=== PATIENT | female | born 1990 | race Caucasian/White ===

== ENCOUNTER 2022-08-19 07:30 | Inpatient (IN) | payer OTHER ==
[2022-08-25 10:26] LABS: Hemoglobin 11.7 g/dL (12.0-15.5); Platelet Count 168 10x3/uL (150-450)
[2022-08-25 10:50] LABS: Syphilis Antibody Nonreactive (Nonreactive); Syphilis Antibody Index 0.03 S/CO (<1.00 Non-Reactive)
[2022-08-25 10:52] LABS: HBSAg Index 0.17 S/CO (0-0.99); Hep B Surf Ag Non-Reactive S/CO (NonReactive)
[2022-08-26] MEDS ORDERED: Bicitra 30 ML UDCUP PO PRN (05:58)
[2022-08-26] MEDS ORDERED: hydrALAZINE 20 MG/ML VIAL SLOW IVP PRN ×2 (05:58→11:01)
[2022-08-26] MEDS ORDERED: Ondansetron PF 4 MG/2 ML Vial IVP PRN ×3 (05:58→11:01)
[2022-08-26] MEDS ORDERED: Promethazine HCl 25 MG/ML VIAL IM PRN ×2 (05:58→08:29)
[2022-08-26] MEDS ORDERED: Famotidine/PF 20 mg/2ml Vial SLOW IVP PRN (05:58)
[2022-08-26] MEDS ORDERED: CEFAZOLIN 2 GM in Sodium Chloride 0.9% 100 ML IVPB SCH (06:00)
[2022-08-26] MEDS ORDERED: NS w/ Oxytocin 30 units 500 ML IV SCH ×2 (06:00→11:01)
[2022-08-26 06:04] VITALS: BMI 39.9
[2022-08-26] MEDS ORDERED: PHENYLEPHRINE-NS 100 MCG/ML 10 ML SYRINGE ONE (07:22)
[2022-08-26] MEDS ORDERED: Oxytocin 10 UNITS/ML VIAL ONE (07:22)
[2022-08-26] MEDS ORDERED: Ondansetron PF 4 MG/2 ML Vial ONE (07:23)
[2022-08-26] MEDS ORDERED: Morphine PF 10 MG/10 ML VIAL ONE (07:27)
[2022-08-26] MEDS ORDERED: Meperidine HCl/PF 25 MG/ML VIAL SLOW IVP PRN (08:29)
[2022-08-26] MEDS ORDERED: Moisturizing Cream (Eucerin) 113 GM JAR TOP PRN (08:29)
[2022-08-26] MEDS ORDERED: Naloxone HCl 0.4 mg/ml Vial IV PRN (08:29)
[2022-08-26] MEDS ORDERED: Ondansetron HCl/PF 4 MG/2 ML Vial IVP PRN (08:29)
[2022-08-26] MEDS ORDERED: Naloxone HCl 0.4 mg/ml Vial IVP PRN ×2 (08:29)
[2022-08-26] MEDS ORDERED: Promethazine HCl 25 MG SUPP PR PRN (08:29)
[2022-08-26] MEDS ORDERED: diphenhydrAMINE 50 MG/ML VIAL IVP PRN (08:29)
[2022-08-26] MEDS ORDERED: Ketorolac Tromethamine 30 MG/ML VIAL IVP PRN (08:29)
[2022-08-26] MEDS ORDERED: Communication Order-Pharmacy FS SCH (08:30)
[2022-08-26] MEDS ORDERED: Ketorolac Tromethamine 30 MG/ML VIAL IVP SCH (08:30)
[2022-08-26] MEDS ORDERED: fentaNYL 50 mcg/mL 1 mL Vial SLOW IVP PRN (08:36)
[2022-08-26] MEDS ORDERED: Bisacodyl 10 MG SUPP PR PRN (11:01)
[2022-08-26] MEDS ORDERED: diphenhydrAMINE 25 MG CAP PO PRN (11:01)
[2022-08-26] MEDS ORDERED: Simethicone Chewable 80 MG TAB PO PRN (11:01)
[2022-08-26] MEDS ORDERED: Boostrix 0.5 ML (Tdap) VIAL (>/=7 yrs of age) IM ONE (11:01)
[2022-08-26] MEDS ORDERED: Acetaminophen 325 MG TAB PO PRN (11:01)
[2022-08-26] MEDS ORDERED: Lanolin Ointment 7 GM TUBE TOP PRN (11:01)
[2022-08-26] MEDS ORDERED: Docusate 100 MG CAP PO SCH (11:15)
[2022-08-26] MEDS ORDERED: Labetalol HCl 100 MG TAB PO SCH (11:15)
[2022-08-26] MEDS ORDERED: Prenatal Vitamin 1 TAB PO SCH (11:15)
[2022-08-26] MEDS ORDERED: NPH, Human Insulin Isophane 300 UNITS/3 ML VIAL SC SCH ×2 (11:15→21:00)
[2022-08-26] MEDS ORDERED: Ferrous Sulfate 325 MG TAB PO SCH (11:15)
[2022-08-26] MEDS ORDERED: Dextrose 50% Abboject 50 ML SYRINGE SLOW IVP PRN (14:35)
[2022-08-26] MEDS ORDERED: Insulin Regular 300 UNITS/3 ML VIAL SC PRN (14:35)
[2022-08-26] MEDS ORDERED: Dextrose 5% in Water 1,000 ML IV PRN (14:35)
[2022-08-26] MEDS ORDERED: HYDROcodone/Acetaminophen 5/325 mg Tablet PO PRN ×2 (21:00)
[2022-08-26] MEDS: Docusate 100 MG CAP PO SCH (23:23)
[2022-08-26] MEDS: Labetalol HCl 100 MG TAB PO SCH (23:24)
[2022-08-26] MEDS: Ferrous Sulfate 325 MG TAB PO SCH (23:24)
[2022-08-26] MEDS ORDERED: Insulin NPH Human Isophane 100 UNITS/ML (10 ML VIAL) SC SCH (23:45)
[2022-08-27 04:40] LABS: Hemoglobin 10.6 g/dL (12.0-15.5); Mean Corpuscular HGB CONC 33.3 g/dL (32.0-36.0); Mean Corpuscular Hemoglobin 28.6 pg (27.0-33.0); Mean Corpuscular Volume 85.7 fl (81.6-98.3); Mean Platelet Volume 11.8 fl (7.4-10.4); Platelet Count 173 10x3/uL (150-450); RBC Distribution Width 14.2 % (11.5-14.5); Red Blood Cell (RBC) Count 3.71 10x6/uL (3.90-5.03); White Blood Cell (WBC) Count 7.6 10x3/uL (3.5-10.5)
[2022-08-27] MEDS: Ferrous Sulfate 325 MG TAB PO SCH ×2 (08:08→22:34)
[2022-08-27] MEDS: Labetalol HCl 100 MG TAB PO SCH ×2 (08:38→22:50)
[2022-08-27] MEDS: Prenatal Vitamin 1 TAB PO SCH (08:38)
[2022-08-27] MEDS: Docusate 100 MG CAP PO SCH ×2 (08:38→22:50)
[2022-08-27] MEDS: Insulin NPH Human Isophane 100 UNITS/ML (10 ML VIAL) SC SCH ×2 (08:39→22:51)
[2022-08-27] MEDS ORDERED: NPH, Human Insulin Isophane 300 UNITS/3 ML VIAL SC SCH (09:00)
[2022-08-27] MEDS: Ibuprofen 800 MG TAB PO SCH ×2 (14:35→22:50)
[2022-08-28] MEDS: Ibuprofen 800 MG TAB PO SCH ×3 (05:58→22:30)
[2022-08-28] MEDS: Prenatal Vitamin 1 TAB PO SCH (10:02)
[2022-08-28] MEDS: Docusate 100 MG CAP PO SCH ×2 (10:03→22:29)
[2022-08-28] MEDS: Labetalol HCl 100 MG TAB PO SCH ×2 (10:03→22:29)
[2022-08-28] MEDS: Ferrous Sulfate 325 MG TAB PO SCH ×2 (10:03→19:34)
[2022-08-28] MEDS: Insulin NPH Human Isophane 100 UNITS/ML (10 ML VIAL) SC SCH ×2 (10:04→22:30)
[2022-08-29] MEDS: Ibuprofen 800 MG TAB PO SCH (06:02)
[2022-08-29] MEDS: Docusate 100 MG CAP PO SCH (08:25)
[2022-08-29] MEDS: Insulin NPH Human Isophane 100 UNITS/ML (10 ML VIAL) SC SCH (08:26)
[2022-08-29] MEDS: Labetalol HCl 100 MG TAB PO SCH (08:26)
[2022-08-29] MEDS: Prenatal Vitamin 1 TAB PO SCH (08:26)
[2022-08-29] MEDS: Ferrous Sulfate 325 MG TAB PO SCH (10:05)
[2022-08-29 12:03] VITALS: BP 127/83; TEMP 98.3
== END 2022-08-29 13:30 | disposition home or self-care (01) | DRG 786 ==
LOC: CSHLD 08-26 05:26 → CSHPP 08-26 11:28
PROVIDERS: ADMIT Obstetrics & Gynecology; ATTEND Obstetrics & Gynecology
PROC: 10D00Z1 Extraction of Products of Conception, Low, Open Approach (ICD-10-PCS; principal; 2022-08-26)
DX: O34.211 Maternal care for low transverse scar from previous cesarean delivery (principal); O24.12 Pre-existing type 2 diabetes mellitus, in childbirth; O10.92 Unspecified pre-existing hypertension complicating childbirth; O99.824 Streptococcus B carrier state complicating childbirth; O99.62 Diseases of the digestive system complicating childbirth; K66.0 Peritoneal adhesions (postprocedural) (postinfection); Z3A.38 38 weeks gestation of pregnancy; Z37.0 Single live birth; Z79.4 Long term (current) use of insulin; Z79.899 Other long term (current) drug therapy
CPT/HCPCS: 36415; 36416; 51702; 85014; 85018; 85027; 85049; 86780; 86850; 86900; 86901; 87340; J1815; J1885; J2274; J2405; J2590; J3490; S0028